=== PATIENT | male | born 1975 | race Caucasian/White ===

== ENCOUNTER 2017-11-05 05:43 | Emergency (ER) | payer BC ==
[~2017-11-05] VITALS: Ht 188 cm; Wt 104.3 kg
== END 2017-11-05 09:03 | disposition home or self-care (01) ==
LOC: ER 05:43
DX: S01.121A Laceration with foreign body of right eyelid and periocular area, initial encounter (principal); W26.8XXA Contact with other sharp object(s), not elsewhere classified, initial encounter; Y93.89 Activity, other specified; Y92.89 Other specified places as the place of occurrence of the external cause; Y99.8 Other external cause status